=== PATIENT | female | born 1965 | race Caucasian/White ===

== ENCOUNTER → 2022-03-20 | Outpatient (CLI) | payer OTHER ==
[~2022-03-20] MED LIST: COLACE 100MG C100 MG PO; DOTTI TD; IBUPROFEN600 MG PO; IRON PO; LORTAB 5-325 M1 EACH PO; MULTI-VITAMIN1 EACH PO; SYNTHROID25 MCG PO; VITAMIN B COMP1 EAC1 PO; VITAMIN D PO; VITAMIN D3250 MC1 PO; VITAMIN E PO
[2022-03-20 10:02] LABS: HEMOGLOBIN 15.2 gm/dl (12.3-15.3); RED BLOOD COUNT 5.2 M/UL (4.00-5.10); WHITE BLOOD COUNT 8.4 K/UL (4.5-11.0)
[2022-03-20 10:41] LABS: BUN/CREATININE RATIO 9 (0-10)
== END ==
LOC: OPSV2 03-19 10:00 → EDSTATUS 09:00 → OPSV2 09:00
PROVIDERS: Orthopaedic Surgery
DX: Z01.818 Encounter for other preprocedural examination (principal); M53.3 Sacrococcygeal disorders, not elsewhere classified
CPT/HCPCS: 80048; 85027; 93005

== ENCOUNTER 2022-03-24 10:18 | Emergency (ER) | payer OTHER ==
[2022-03-24 12:27] LABS: HEMOGLOBIN 15.4 gm/dl (12.3-15.3); RED BLOOD COUNT 5.22 M/UL (4.00-5.10); WHITE BLOOD COUNT 6.8 K/UL (4.5-11.0)
[2022-03-24 13:39] LABS: BUN/CREATININE RATIO 8 (0-10)
== END 2022-03-24 15:15 | disposition home or self-care (01) ==
LOC: ER1 10:18
PROVIDERS: Emergency Medicine
DX: R10.9 Unspecified abdominal pain (principal); R19.7 Diarrhea, unspecified; R68.83 Chills (without fever); Z90.710 Acquired absence of both cervix and uterus
CPT/HCPCS: 80053; 82550; 82553; 83690; 84484; 85025; 99284; J2405; Q9967

== ENCOUNTER → 2022-04-10 | Day surgery (SDC) | payer OTHER ==
[~2022-04-10] MED LIST changes: +ROXICODONE5 MG PO
== END | disposition home or self-care (01) ==
LOC: OR 03-27 12:30
DX: M53.3 Sacrococcygeal disorders, not elsewhere classified (principal); G89.29 Other chronic pain; E03.9 Hypothyroidism, unspecified; F41.9 Anxiety disorder, unspecified; Z79.899 Other long term (current) drug therapy
CPT/HCPCS: 72202; 76000; C1776; J0171; J0690; J0735; J1100; J1170; J1885; J2001; J2250; J2274; J2405; J2704; J2710; J2795; J3010; J7050